=== PATIENT | male | born 1945 | race Caucasian/White ===

== ENCOUNTER 2017-02-20 07:23 | Emergency (ER) | payer OTHER ==
[~2017-02-20] VITALS: Ht 170.2 cm; Wt 90.7 kg
[2017-02-20] MEDS ORDERED: TOLT4CAP PO (07:31)
[2017-02-20] MEDS ORDERED: CLIN300C11 PO (07:31)
[2017-02-20] MEDS ORDERED: ASPI81TA31 PO (07:31)
[2017-02-20] MEDS ORDERED: TDAP DIPH,PERTUSS,TET VAC/PF 0.5 ML DISP.SYRIN IM ONE ×2 (07:45→08:02)
--- NOTE | 2017-02-20 07:57 | NUR ---
Patient discharged to home in stable conditon. Written and verbal after care instructions given. Patient verbalizes understanding of instructions. Stressed follow up.
== END 2017-02-20 08:00 | disposition home or self-care (01) ==
LOC: ER 07:23
DX: L02.11 Cutaneous abscess of neck (principal); Z79.82 Long term (current) use of aspirin
CPT/HCPCS: 90471; 90715; 99283; A4663

== ENCOUNTER 2017-09-06 22:02 | Emergency (ER) | payer OTHER ==
[~2017-09-06] VITALS: Ht 170.2 cm; Wt 90.3 kg
[~2017-09-06 22:02] MED LIST: ASPI81TA31 PO; CLIN300C11 PO; TOLT4CAP PO
--- NOTE | 2017-09-06 22:19 | NUR ---
PT IN BED. MD CHIN AT BEDSIDE CONDUCTING MED EVAL.
[2017-09-06] MEDS ORDERED: IBUP-76 PO (22:20)
[2017-09-06] MEDS ORDERED: AMOX500C2 PO (22:20)
[2017-09-06] MEDS ORDERED: CARB15DR97 OP (22:20)
[2017-09-06] MEDS ORDERED: ALBUTEROL SULFATE 2.5 MG/3 ML NEBU NEB ONE (22:30)
[2017-09-06] MEDS ORDERED: ALBUTEROL SULFATE 2.5 MG/3 ML NEBU ONE (22:42)
[2017-09-06 22:54] LABS: BASOPHILS # (AUTO) 0.1 K/uL (0.0-8.0); BASOPHILS % (AUTO) 0.8 % (0.0-2.0); EOSINOPHILS # (AUTO) 0.3 K/uL (0.0-0.7); EOSINOPHILS % (AUTO) 3.8 % (0.0-7.0); HEMATOCRIT 45.3 % (36.7-47.1); HEMOGLOBIN 15.2 g/dL (12.5-16.3); LYMPHOCYTES # (AUTO) 0.7 K/uL (20.0-40.0); LYMPHOCYTES % (AUTO) 9.1 % (20.5-51.5); MEAN CORPUSCULAR HEMOGLOBIN 27.2 uug (23.8-33.4); MEAN CORPUSCULAR HGB CONC 34 g/dL (32.5-36.3); MONOCYTES # (AUTO) 0.8 K/uL (2.0-10.0); MONOCYTES % (AUTO) 10.7 % (0.0-11.0); NEUTROPHILS # (AUTO) 5.9 K/uL (1.8-8.9); NEUTROPHILS % (AUTO) 75.6 % (38.5-71.5); PLATELET COUNT (AUTO) 153 K/uL (152-348); WHITE BLOOD COUNT (AUTO) 7.8 K/uL (3.6-10.2)
[2017-09-06 23:18] LABS: ALANINE AMINOTRANSFERASE 43 U/L (16-63); ALKALINE PHOSPHATASE 71 U/L (50-136); ASPARTATE AMINOTRANSFERASE 23 U/L (15-37); BILIRUBIN,DIRECT 0.1 mg/dL (0.0-0.2); BILIRUBIN,TOTAL 0.6 mg/dL (0.2-1.0); CARBON DIOXIDE 25 mmol/L (21-32); CHLORIDE 106 mmol/L (98-107); CREATININE 1.1 mg/dL (0.6-1.3); GLUCOSE 93 mg/dL (74-106); POTASSIUM 3.8 mmol/L (3.5-5.1); TOTAL PROTEIN, SERUM 7.2 g/dL (6.4-8.2); UREA NITROGEN, BLOOD 8 mg/dL (7-18)
--- NOTE | 2017-09-06 23:25 | NUR ---
MD CHIN AT BEDSIDE DISCUSSING TX OPTIONS WITH PT
[2017-09-06] MEDS ORDERED: predniSONE 20 MG TABLET PO ONE (23:30)
[2017-09-06] MEDS ORDERED: predniSONE 20 MG TABLET ONE (23:31)
--- NOTE | 2017-09-06 23:45 | NUR ---
Patient discharged to home in stable conditon. Written and verbal after care instructions given. Patient verbalizes understanding of instructions. Patient reported less difficulties associated with breathing prior to discharge. Peripheral IV was removed. Patient able to ambulate unassisted with a steady gait. Patient left with all personal belongings.
[2017-09-06 23:52] VITALS: BP 131/88
== END 2017-09-06 23:45 | disposition home or self-care (01) ==
LOC: ER 22:02
DX: J20.9 Acute bronchitis, unspecified (principal); Z88.1 Allergy status to other antibiotic agents; Z88.8 Allergy status to other drugs, medicaments and biological substances; Z79.82 Long term (current) use of aspirin; Z79.2 Long term (current) use of antibiotics; Z79.1 Long term (current) use of non-steroidal anti-inflammatories (NSAID); Z79.899 Other long term (current) drug therapy
CPT/HCPCS: 36415; 70030-TC; 71045; 85025; 87040; 87400; 93005; A4663; J7030; J7512

== ENCOUNTER 2017-10-18 22:37 | Emergency (ER) | payer OTHER ==
[~2017-10-18] VITALS: Ht 170.2 cm; Wt 90.7 kg
[~2017-10-18 22:37] MED LIST changes: +AMOX500C2 PO; +CARB15DR97 OP; -CLIN300C11 PO; +IBUP-76 PO
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
[2017-10-18] MEDS ORDERED: TIMO5SOL11 EACHEYE (23:12)
[2017-10-18 23:41] LABS: BASOPHILS # (AUTO) 0.1 K/uL (0.0-8.0); BASOPHILS % (AUTO) 1.2 % (0.0-2.0); EOSINOPHILS # (AUTO) 0.2 K/uL (0.0-0.7); EOSINOPHILS % (AUTO) 4.3 % (0.0-7.0); HEMATOCRIT 48.1 % (36.7-47.1); HEMOGLOBIN 15.7 g/dL (12.5-16.3); LYMPHOCYTES # (AUTO) 1.3 K/uL (20.0-40.0); LYMPHOCYTES % (AUTO) 23.9 % (20.5-51.5); MEAN CORPUSCULAR HEMOGLOBIN 26.4 uug (23.8-33.4); MEAN CORPUSCULAR HGB CONC 33 g/dL (32.5-36.3); MEAN CORPUSCULAR VOLUME 80.8 fL (73.0-96.2); MONOCYTES # (AUTO) 0.6 K/uL (2.0-10.0); MONOCYTES % (AUTO) 11.5 % (0.0-11.0); NEUTROPHILS # (AUTO) 3.3 K/uL (1.8-8.9); NEUTROPHILS % (AUTO) 59.1 % (38.5-71.5); PLATELET COUNT (AUTO) 177 K/uL (152-348); RED BLOOD CELL COUNT(AUTO) 5.95 MIL/uL (4.06-5.63); WHITE BLOOD COUNT (AUTO) 5.5 K/uL (3.6-10.2)
[2017-10-18 23:51] LABS: CARBON DIOXIDE 29 mmol/L (21-32); CHLORIDE 105 mmol/L (98-107); GLUCOSE 95 mg/dL (74-106); UREA NITROGEN, BLOOD 10 mg/dL (7-18)
[2017-10-18 23:52] LABS: *BILIRUBIN,URIN NEGATIVE (NEGATIVE); *BLOOD, URINE NEGATIVE (NEGATIVE); *CLARITY,URINE CLEAR (CLEAR); *COLOR,URINE YELLOW (YELLOW); *KETONES,URINE NEGATIVE (NEGATIVE); *PROTEIN,URINE NEGATIVE (NEGATIVE); *UROBILINOGEN,URINE 0.2 E.U./dl (NORMAL); LEUKOCYTE ESTERASE ,URINE NEGATIVE (NEGATIVE); NITRITE, URINE NEGATIVE (NEGATIVE); UGLUCOSE NEGATIVE (NEGATIVE)
[2017-10-18 23:57] LABS: ALANINE AMINOTRANSFERASE 53 U/L (16-63); ALKALINE PHOSPHATASE 75 U/L (50-136); ASPARTATE AMINOTRANSFERASE 28 U/L (15-37); BILIRUBIN,DIRECT 0.1 mg/dL (0.0-0.2); BILIRUBIN,TOTAL 0.5 mg/dL (0.2-1.0); TOTAL PROTEIN, SERUM 7.6 g/dL (6.4-8.2)
[2017-10-19 00:01] LABS: BACTERIA,URINE NONE SEEN /HPF (NONE SEEN); RBC,URINE 0-3 /HPF (0-3); SQUAMOUS EPITHELIAL CELL,UR FEW /HPF (NONE SEEN); WBC,URINE 0-3 /HPF (0-3)
[2017-10-19] MEDS ORDERED: ACETAMINOPHEN ES 500 MG TABLET ONE (00:39)
[2017-10-19] MEDS: ACETAMINOPHEN ES 500 MG TABLET PO ONE (00:46)
--- NOTE | 2017-10-19 01:26 | NUR ---
Patient discharged to home in stable conditon. Written and verbal after care instructions given. Patient verbalizes understanding of instructions. Pt ambulated out of ER in steady gait with cane. All belongings with pt. No acute distress noted. VSS.
[2017-10-19 01:27] VITALS: BP 136/96
== END 2017-10-19 01:29 | disposition home or self-care (01) ==
LOC: ER 22:38
DX: S06.0X0A Concussion without loss of consciousness, initial encounter (principal); Z88.1 Allergy status to other antibiotic agents; Z88.8 Allergy status to other drugs, medicaments and biological substances; Z79.82 Long term (current) use of aspirin; X58.XXXA Exposure to other specified factors, initial encounter; Y93.89 Activity, other specified; Y92.89 Other specified places as the place of occurrence of the external cause; Y99.8 Other external cause status
CPT/HCPCS: 36415; 70450; 85025; A4663; A9150

== ENCOUNTER 2017-11-09 23:26 | Emergency (ER) | payer OTHER ==
[~2017-11-09] VITALS: Ht 170.2 cm; Wt 88.5 kg
[~2017-11-09 23:26] MED LIST changes: -AMOX500C2 PO; -IBUP-76 PO; +TIMO5SOL11 EACHEYE
--- NOTE | 2017-11-09 23:40 | NUR ---
DR SHAY SOLIS MD AT BEDSIDE FOR MSE.
--- NOTE | 2017-11-09 23:57 | NUR ---
PT TAKEN TO CT VIA WHEELCHAIR. NO DISTRESS NOTED AT THIS TIME.
--- NOTE | 2017-11-10 00:28 | NUR ---
PT BACK IN ROOM FROM CT. NO ACUTE EVENT. PT RESTING COMFORTABLY IN BED.
--- NOTE | 2017-11-10 01:35 | NUR ---
Patient discharged to home in stable conditon. Written and verbal after care instructions given. Patient verbalizes understanding of instructions. Pt ambulated from ER w/ steady gait w/ use of cane. No distress noted. Denies HEALY, dizziness, N/V at this time. Pt took all personal belongings.
[2017-11-10 01:37] VITALS: BP 136/92
== END 2017-11-10 01:38 | disposition home or self-care (01) ==
LOC: ER 23:28
DX: F07.81 Postconcussional syndrome (principal); Z88.1 Allergy status to other antibiotic agents; Z88.8 Allergy status to other drugs, medicaments and biological substances; Z90.49 Acquired absence of other specified parts of digestive tract; Z79.82 Long term (current) use of aspirin; Z79.899 Other long term (current) drug therapy
CPT/HCPCS: 70450; A4663

== ENCOUNTER 2018-07-24 19:30 | Emergency (ER) | payer OTHER ==
[~2018-07-24] VITALS: Ht 170.2 cm; Wt 84.8 kg
[2018-07-24] MEDS ORDERED: ASPIRIN 81 MG TAB.CHEW PO ONE (19:45)
[2018-07-24] MEDS ORDERED: NITROGLYCERIN OINT 1 GM PACKET TP ONE ×2 (19:45→20:07)
--- NOTE | 2018-07-24 19:45 | NUR ---
Pt. ambulated into ED w/ c/o intermittent CP 11/17 since this morning, states "it comes and goes but not necessarily w/ exertion",
[2018-07-24] MEDS ORDERED: ASPIRIN 81 MG TAB.CHEW ONE (20:06)
[2018-07-24 20:08] LABS: BASOPHILS # (AUTO) 0.1 K/uL (0.0-8.0); BASOPHILS % (AUTO) 1.1 % (0.0-2.0); EOSINOPHILS # (AUTO) 0.5 K/uL (0.0-0.7); EOSINOPHILS % (AUTO) 7.8 % (0.0-7.0); HEMATOCRIT 45.1 % (36.7-47.1); HEMOGLOBIN 14.5 g/dL (12.5-16.3); LYMPHOCYTES # (AUTO) 1.1 K/uL (20.0-40.0); LYMPHOCYTES % (AUTO) 18.1 % (20.5-51.5); MEAN CORPUSCULAR HGB CONC 32 g/dL (32.5-36.3); MEAN CORPUSCULAR VOLUME 80.9 fL (73.0-96.2); MONOCYTES # (AUTO) 0.7 K/uL (2.0-10.0); MONOCYTES % (AUTO) 11.8 % (0.0-11.0); NEUTROPHILS # (AUTO) 3.7 K/uL (1.8-8.9); NEUTROPHILS % (AUTO) 61.2 % (38.5-71.5); PLATELET COUNT (AUTO) 174 K/uL (152-348); RED BLOOD CELL COUNT(AUTO) 5.57 MIL/uL (4.06-5.63)
[2018-07-24 20:09] VITALS: BP 131/84
[2018-07-24 20:18] LABS: CARBON DIOXIDE 27 mmol/L (21-32); CHLORIDE 105 mmol/L (98-107); CREATININE 0.9 mg/dL (0.6-1.3); GLUCOSE 84 mg/dL (74-106); UREA NITROGEN, BLOOD 12 mg/dL (7-18)
--- NOTE | 2018-07-24 20:20 | NUR ---
Pt. up to use restroom, ambulated w/ steady gait,
[2018-07-24 20:31] LABS: ALANINE AMINOTRANSFERASE 57 U/L (16-63); ALKALINE PHOSPHATASE 71 U/L (50-136); ASPARTATE AMINOTRANSFERASE 30 U/L (15-37); BILIRUBIN,DIRECT 0.1 mg/dL (0.0-0.2); BILIRUBIN,TOTAL 0.6 mg/dL (0.2-1.0)
--- NOTE | 2018-07-24 21:17 | NUR ---
Pt. resting in bed, IV intact - no s/s infiltration/phlebitis, NAD
--- NOTE | 2018-07-24 21:50 | NUR ---
Pt. resting in bed, awaiting repeat troponin @ 2300
--- NOTE | 2018-07-24 22:56 | NUR ---
Phleb. tech. at bedside for repeat troponin draw,
--- NOTE | 2018-07-24 23:34 | NUR ---
Pt. resting in bed, IV patent and intact - no s/s infiltration/phlebitis, awaiting repeat trop. results,
--- NOTE | 2018-07-24 23:44 | NUR ---
Patient discharged to home in stable conditon. Written and verbal after care instructions given. Patient verbalizes understanding of instructions. Pt. d/c w/ prescription per MD order, all belongings w/ pt., d/c papers signed, ID/IV removed, ambulated off unit w/ steady gait, no acute distress, left in private vehicle, NAD,
== END 2018-07-24 23:46 | disposition home or self-care (01) ==
LOC: ER 19:32
DX: R07.89 Other chest pain (principal); M54.9 Dorsalgia, unspecified; Z90.49 Acquired absence of other specified parts of digestive tract; Z88.1 Allergy status to other antibiotic agents; Z88.8 Allergy status to other drugs, medicaments and biological substances; Z79.82 Long term (current) use of aspirin; Z79.899 Other long term (current) drug therapy
CPT/HCPCS: 36415; 70030-TC; 71045; 85025; 93005; A4663

== ENCOUNTER 2019-01-30 19:41 | Emergency (ER) | payer OTHER ==
[~2019-01-30] VITALS: Ht 170.2 cm; Wt 89.4 kg
[2019-01-30 20:16] LABS: BASOPHILS # (AUTO) 0.1 K/uL (0.0-8.0); EOSINOPHILS # (AUTO) 0.3 K/uL (0.0-0.7); EOSINOPHILS % (AUTO) 4.1 % (0.0-7.0); HEMATOCRIT 44.4 % (36.7-47.1); HEMOGLOBIN 14.8 g/dL (12.5-16.3); LYMPHOCYTES # (AUTO) 1.4 K/uL (20.0-40.0); LYMPHOCYTES % (AUTO) 22.2 % (20.5-51.5); MEAN CORPUSCULAR HEMOGLOBIN 27.5 uug (23.8-33.4); MEAN CORPUSCULAR HGB CONC 33 g/dL (32.5-36.3); MEAN CORPUSCULAR VOLUME 82.5 fL (73.0-96.2); MONOCYTES # (AUTO) 0.7 K/uL (2.0-10.0); MONOCYTES % (AUTO) 10.5 % (0.0-11.0); NEUTROPHILS % (AUTO) 62.2 % (38.5-71.5); PLATELET COUNT (AUTO) 171 K/uL (152-348); RED BLOOD CELL COUNT(AUTO) 5.38 MIL/uL (4.06-5.63); WHITE BLOOD COUNT (AUTO) 6.4 K/uL (3.6-10.2)
--- NOTE | 2019-01-30 22:04 | NUR ---
Pt walks into ER with c/o left arm pain starting yesterday. Denies any trauma or injury to area. Pt is AAOX4, ambulatory. Speech clear. Neuro intact. Hx Cabrera's Palsy. Vital signs stable.
[2019-01-30] MEDS: ACETAMINOPHEN 325 MG TABLET PO ONE (22:59)
[2019-01-30] MEDS ORDERED: ACETAMINOPHEN 325 MG TABLET ONE (23:01)
[2019-01-31] MEDS ORDERED: IOHEXOL 350 100 ML INFUS..BTL ONE (00:15)
[2019-01-31] MEDS ORDERED: IV NORMAL SALINE 250 ML IV ONE (00:15)
[2019-01-31] MEDS ORDERED: SWABABLE VALVE TRANSFER SET EA MC ONE (00:15)
--- NOTE | 2019-01-31 01:49 | NUR ---
Pt is resting comfortably in bed with eyes closed. Respirations even + unlabored.
--- NOTE | 2019-01-31 03:26 | NUR ---
Paged Thoracic Surgeon embedded case manager per MD request 2nd time. No call back yet.
--- NOTE | 2019-01-31 05:07 | NUR ---
Pending call back from [facility] for admission. Received no call back from [facility] after 2 attempts.
--- NOTE | 2019-01-31 05:28 | NUR ---
IV removed. Catheter intact and site benign. Pressure and 4x4 gauze applied to site. No bleeding noted.
--- NOTE | 2019-01-31 05:29 | NUR ---
Patient discharged to home in stable conditon. Written and verbal after care instructions given. Patient verbalizes understanding of instructions. Pt d/c in stable condition & states will follow up with his primary doctor.
[2019-01-31 05:31] VITALS: BP 158/97
== END 2019-01-31 05:32 | disposition home or self-care (01) ==
LOC: ER 19:41
DX: I71.2 Thoracic aortic aneurysm, without rupture (principal); Z90.49 Acquired absence of other specified parts of digestive tract; Z88.1 Allergy status to other antibiotic agents; Z88.8 Allergy status to other drugs, medicaments and biological substances; Z79.82 Long term (current) use of aspirin; Z79.899 Other long term (current) drug therapy
CPT/HCPCS: 36415 ×2; 71045; 71275; 80048; 84484 ×3; 85025; 93005 ×2; 93971; 99284; Q9967; 70030-TC; A4663; J7050

== ENCOUNTER 2019-06-21 17:51 | Emergency (ER) | payer OTHER ==
[~2019-06-21] VITALS: Ht 170.2 cm; Wt 87.1 kg
--- NOTE | 2019-06-21 19:05 | NUR ---
RECEIVED HAND OFF AND SBAR FR HAYES
--- NOTE | 2019-06-21 20:12 | NUR ---
Patient discharged to home in stable conditon. Written and verbal after care instructions given. Patient verbalizes understanding of instructions. AMBULATORY W/ STABLE GAIT ALL BELONGINGS W/ PT
[2019-06-21 21:01] VITALS: BP 110/82
[2019-07-10] MEDS ORDERED: OXYB15TA3 PO (02:20)
[2019-07-10] MEDS ORDERED: HYDR12.517 PO (02:20)
[2019-07-22] MEDS ORDERED: OXYB10TA4 PO (20:21)
== END 2019-06-21 20:10 | disposition home or self-care (01) ==
LOC: ER 17:54
DX: S06.0X0A Concussion without loss of consciousness, initial encounter (principal); E78.5 Hyperlipidemia, unspecified; Z88.1 Allergy status to other antibiotic agents; Z79.82 Long term (current) use of aspirin; Z79.899 Other long term (current) drug therapy; Z90.49 Acquired absence of other specified parts of digestive tract; V49.9XXA Car occupant (driver) (passenger) injured in unspecified traffic accident, initial encounter; Y93.89 Activity, other specified; Y92.89 Other specified places as the place of occurrence of the external cause; Y99.8 Other external cause status
CPT/HCPCS: 70450; 71250; A4663

== ENCOUNTER 2019-07-10 02:08 | Emergency (ER) | payer OTHER ==
[~2019-07-10] VITALS: Ht 170.2 cm; Wt 87.1 kg
--- NOTE | 2019-07-10 02:24 | NUR ---
PATIENT WAS MSE BY DR CHIN IN ROOM 04A. PATIENT A & O X3.
[2019-07-10 02:54] LABS: CREATININE 0.9 mg/dL (0.6-1.3); POTASSIUM 3.8 mmol/L (3.5-5.1)
[2019-07-10] MEDS ORDERED: POTASSIUM CHLORIDE 20 MEQ POWDER PACKET PO ONE (03:00)
[2019-07-10] MEDS ORDERED: POTASSIUM CHLORIDE 20 MEQ POWDER PACKET ONE (03:07)
--- NOTE | 2019-07-10 03:25 | NUR ---
Dr Huerta made patient aware of test results will be dc home.
--- NOTE | 2019-07-10 03:34 | NUR ---
Patient discharged to home in stable condition. Written and verbal after care instructions given. Patient verbalizes understanding of instructions.
[2019-07-10 03:36] VITALS: BP 124/85
== END 2019-07-10 03:38 | disposition home or self-care (01) ==
LOC: ER 02:10
DX: I10 Essential (primary) hypertension (principal); E78.5 Hyperlipidemia, unspecified; Z90.49 Acquired absence of other specified parts of digestive tract; Z88.1 Allergy status to other antibiotic agents; Z88.8 Allergy status to other drugs, medicaments and biological substances; Z79.899 Other long term (current) drug therapy; Z79.82 Long term (current) use of aspirin
CPT/HCPCS: 36415; 93005; A4663

== ENCOUNTER 2019-07-22 19:12 | Emergency (ER) | payer OTHER ==
[~2019-07-22] VITALS: Ht 170.2 cm; Wt 86.2 kg
--- NOTE | 2019-07-22 19:40 | NUR ---
PATIENT WAS MSE BY DR CHIN IN ROOM 05A. PATIENT A & O X3.
--- NOTE | 2019-07-22 20:14 | NUR ---
DR CHIN MADE PATIENT AWARE OF TEST RESULTS WILL DC HOME.
--- NOTE | 2019-07-22 20:15 | NUR ---
Patient discharged to home in stable condition. Written and verbal after care instructions given. Patient verbalizes understanding of instructions.
[2019-07-22 20:16] VITALS: BP 122/71
== END 2019-07-22 20:17 | disposition home or self-care (01) ==
LOC: ER 19:13
DX: R42 Dizziness and giddiness (principal); R06.00 Dyspnea, unspecified; R09.81 Nasal congestion; E78.5 Hyperlipidemia, unspecified; Z90.49 Acquired absence of other specified parts of digestive tract; Z88.1 Allergy status to other antibiotic agents; Z88.8 Allergy status to other drugs, medicaments and biological substances; Z79.82 Long term (current) use of aspirin; Z79.899 Other long term (current) drug therapy
CPT/HCPCS: 71045; 93005; A4663